=== PATIENT | female | born 1950 | race Caucasian/White ===

== ENCOUNTER 2021-05-06 08:19 | Day surgery (SDC) | payer MEDICARE, BC ==
[~2021-05-06] VITALS: Ht 165.1 cm; Wt 82.2 kg
[2021-05-06] MEDS ORDERED: albumin 25% 100mL bottle x 1 IV PRN (09:00)
[2021-05-06] MEDS ORDERED: LORA-269 PO (09:29)
[2021-05-06] MEDS ORDERED: LEVO100C4 PO (09:29)
[2021-05-06] MEDS ORDERED: AMIO200T27 PO (09:29)
[2021-05-06] MEDS ORDERED: LOP12.5T PO (09:29)
[2021-05-06 09:30] VITALS: BP 168/89
[2021-05-06 10:22] VITALS: BP 181/85
[2021-05-06 10:30] VITALS: BP 173/89
[2021-05-06 10:45] VITALS: BP 141/78
[2021-05-06 11:00] VITALS: BP 147/79
[2021-05-06 11:15] VITALS: BP 141/80
== END 2021-05-06 11:30 | disposition home or self-care (01) ==
LOC: SSTAY O 08:19
PROVIDERS: ATTEND Radiology Vascular & Interventional Radiology
DX: J90 Pleural effusion, not elsewhere classified (principal); I25.10 Atherosclerotic heart disease of native coronary artery without angina pectoris; I48.0 Paroxysmal atrial fibrillation; I10 Essential (primary) hypertension; E78.5 Hyperlipidemia, unspecified; F41.9 Anxiety disorder, unspecified; E03.9 Hypothyroidism, unspecified; I34.0 Nonrheumatic mitral (valve) insufficiency; E66.9 Obesity, unspecified; Z68.30 Body mass index [BMI] 30.0-30.9, adult; Z20.822 Contact with and (suspected) exposure to COVID-19; Z90.49 Acquired absence of other specified parts of digestive tract; Z90.710 Acquired absence of both cervix and uterus; Z95.2 Presence of prosthetic heart valve; Z88.1 Allergy status to other antibiotic agents; Z79.899 Other long term (current) drug therapy
CPT/HCPCS: 32555; 87635; C9803

== ENCOUNTER 2021-06-01 06:11 | Day surgery (SDC) | payer MEDICARE, BC ==
[~2021-06-01] VITALS: Ht 165.1 cm; Wt 81.2 kg
[~2021-06-01 06:11] MED LIST: AMIO200T27 PO; LEVO100C4 PO; LOP12.5T PO; LORA-269 PO
[2021-06-01] MEDS ORDERED: normal saline 1000ml 1,000 ML IV PRN (06:30)
[2021-06-01] MEDS ORDERED: albumin 25% 100mL bottle x 1 IV PRN (06:30)
[2021-06-01 06:36] VITALS: BP 180/80
[2021-06-01 08:31] VITALS: BP 169/77
[2021-06-01 08:46] VITALS: BP 141/72
[2021-06-01 09:00] VITALS: BP 147/80
[2021-06-01 09:15] VITALS: BP 151/77
== END 2021-06-01 09:35 | disposition home or self-care (01) ==
LOC: SSTAY O 06:11
PROVIDERS: ATTEND Radiology Vascular & Interventional Radiology
DX: J90 Pleural effusion, not elsewhere classified (principal); I25.10 Atherosclerotic heart disease of native coronary artery without angina pectoris; I48.0 Paroxysmal atrial fibrillation; I10 Essential (primary) hypertension; E78.5 Hyperlipidemia, unspecified; F41.9 Anxiety disorder, unspecified; E03.9 Hypothyroidism, unspecified; I34.0 Nonrheumatic mitral (valve) insufficiency; E66.9 Obesity, unspecified; Z68.29 Body mass index [BMI] 29.0-29.9, adult; Z20.822 Contact with and (suspected) exposure to COVID-19; Z90.49 Acquired absence of other specified parts of digestive tract; Z90.710 Acquired absence of both cervix and uterus; Z98.890 Other specified postprocedural states; Z88.1 Allergy status to other antibiotic agents; Z79.899 Other long term (current) drug therapy
CPT/HCPCS: 32555; 87635; C9803